=== PATIENT | male | born 1985 | race African-American/Black ===

== ENCOUNTER 2017-04-20 17:10 | Emergency (ER) | payer SELFPAY ==
[2017-04-20] MEDS ORDERED: ASPIRIN 81 MG TABLET, CHEWABLE PO ONE (17:25)
[2017-04-20 17:44] LABS: ABSOLUTE EOSINOPHILS # (AUTO) 0.1 10^3/uL (0.0-0.6); ABSOLUTE LYMPHOCYTES (AUTO) 2.7 10^3/uL (0.5-4.7); ABSOLUTE MONOCYTES (AUTO) 0.7 10^3/uL (0.1-1.4); ABSOLUTE NEUT (AUTO) 2.9 10^3/uL (1.7-8.2); BASOPHILS % (AUTO) 0.7 % (0-2); EOSINOPHILS % (AUTO) 1.5 % (0-6); HEMOGLOBIN 14.7 g/dL (13.5-17.0); HGB HCT DIFFERENCE -0.9; LYMPHOCYTES % (AUTO) 42.2 % (13-45); MEAN CORPUSCULAR HEMOGLOBIN 29.9 pg (27.0-33.4); MEAN CORPUSCULAR HGB CONC 32.8 g/dL (32.0-36.0); MEAN CORPUSCULAR VOLUME 91 fl (80-97); MONOCYTES % (AUTO) 10.7 % (3-13); RED BLOOD COUNT 4.93 10^6/uL (4.35-5.55); RED CELL DISTRIBUTION WIDTH 13.6 % (11.5-14.0); SEGMENTED NEUTROPHILS % (AUTO) 44.9 % (42-78); WHITE BLOOD COUNT 6.4 10^3/uL (4.0-10.5)
[2017-04-20 18:09] LABS: ALANINE AMINOTRANSFERASE 75 U/L (21-72); ALBUMIN 4.6 g/dL (3.5-5.0); ALKALINE PHOSPHATASE 86 U/L (38-126); ANION GAP 13 (5-19); ASPARTATE AMINO TRANSFERASE 46 U/L (17-59); BILIRUBIN,DIRECT 0.3 mg/dL (0.0-0.4); BILIRUBIN,TOTAL 0.5 mg/dL (0.2-1.3); BLOOD UREA NITROGEN 12 mg/dL (7-20); CALCIUM 9.7 mg/dL (8.4-10.2); CARBON DIOXIDE 25 mmol/L (22-30); CHLORIDE 105 mmol/L (98-107); CREATINE KINASE 337 U/L (55-170); CREATININE RESULT 1.05 mg/dL (0.52-1.25); GLUCOSE 112 mg/dL (75-110); SODIUM 143.2 mmol/L (137-145)
--- NOTE | 2017-04-20 18:10 | ER Document Report ---
ED General - General Mode of Arrival: Ambulatory Information source: Patient TRAVEL OUTSIDE OF THE [place] IN LAST 30 DAYS: No - HPI Onset: Other - Refer to HPI notes Similar symptoms previously: No Recently seen / treated by doctor: No <HIPOLITO CUEVAS - Last Filed: 04/20/17 18:46> <LATRICEMAGUI VICENTE - Last Filed: 04/20/17 20:52> - General Chief Complaint: Chest Pain Stated Complaint: CHEST PAIN Time Seen by Provider: 04/20/17 17:25 Notes: Patient is a 32 year old male presenting to the emergency department for chest pain in his sternum. Patient states his pain has been waxing and waning since Saturday. Patient states his pain is exacerbated with with deep breathing and when he takes a gulp of fluid. Patient states he feels like his lungs are burning. Patient states he had an herbal tea energy drink earlier this morning. Patient has a history of hypertension and spouse states that he not take his medications for such. Patient was given medications for hypertension at the ED from a prior visit and states that they make him dizzy so he does not take them. Patient was given 325 mg of Aspirin in triage. Patient has no known drug allergies. (HIPOLITO CUEVAS) - Related Data Allergies/Adverse Reactions: No Known Allergies Allergy (Verified 12/22/14 12:16) Past Medical History - General Information source: Patient, Relative - Social History Smoking Status: Current Every Day Smoker Chew tobacco use (# tins/day): No Frequency of alcohol use: None Drug Abuse: None Family History: None Patient has suicidal ideation: No Patient has homicidal ideation: No - Past Medical History Cardiac Medical History: Reports: Hx Hypertension Surgical Hx: Negative - Immunizations Immunizations up to date: Yes Hx Diphtheria, Pertussis, Tetanus Vaccination: Yes <HIPOLITO CUEVAS - Last Filed: 04/20/17 18:46> Review of Systems - Review of Systems Constitutional: No symptoms reported EENT: No symptoms reported Cardiovascular: See HPI, Chest pain Respiratory: No symptoms reported Gastrointestinal: No symptoms reported Genitourinary: No symptoms reported Male Genitourinary: No symptoms reported Musculoskeletal: No symptoms reported Skin: No symptoms reported Hematologic/Lymphatic: No symptoms reported Neurological/Psychological: No symptoms reported -: Yes All other systems reviewed and negative <HIPOLITO CUEVAS - Last Filed: 04/20/17 18:46> Physical Exam - Vital signs Interpretation: Hypertensive - General General appearance: Appears well, Alert - HEENT Head: Normocephalic, Atraumatic Eyes: Normal Pupils: PERRL - Respiratory Respiratory status: No respiratory distress Chest status: Nontender Breath sounds: Normal Chest palpation: Tender - Reproducible chest wall tenderness to palpation at the costosternal angle. - Cardiovascular Rhythm: Regular Heart sounds: Normal auscultation Murmur: No - Abdominal Inspection: Normal Distension: No distension Bowel sounds: Normal Tenderness: Nontender Organomegaly: No organomegaly - Back Back: Normal, Nontender - Extremities General upper extremity: Normal inspection, Nontender, Normal color, Normal ROM , Normal temperature General lower extremity: Normal inspection, Nontender, Normal color, Normal ROM , Normal temperature, Normal weight bearing. No: Ash's sign - Neurological Neuro grossly intact: Yes Cognition: Normal Orientation: AAOx4 Leo Coma Scale Eye Opening: Spontaneous Varney Coma Scale Verbal: Oriented Leo Coma Scale Motor: Obeys Commands Varney Coma Scale Total: 15 Speech: Normal Motor strength normal: LUE, RUE, LLE, RLE Sensory: Normal - Psychological Associated symptoms: Normal affect, Normal mood - Skin Skin Temperature: Warm Skin Moisture: Dry Skin Color: Normal <MAGUI POLLARD - Last Filed: 04/20/17 20:52> Course - Laboratory Result Diagrams: 04/20/17 17:35 04/20/17 17:35 <HIPOLITO CUEVAS - Last Filed: 04/20/17 18:46> - Laboratory Result Diagrams: 04/20/17 17:35 04/20/17 17:35 - Diagnostic Test Radiology reviewed: Reports reviewed - EKG Interpretation by Ri EKG shows normal: Sinus rhythm Rate: Normal Rhythm: NSR <MAGUI POLLARD - Last Filed: 04/20/17 20:52> - Re-evaluation Re-evalutation: 04/20/17 19:51 Patient is a 32-year-old male who comes in with anterior chest wall pain. It is reproducible to palpation. Patient has a history of hypertension but states that it makes him dizzy when he takes blood pressure medication. His blood pressure has come down to 130s over 90s here without any intervention. No acute findings on blood work. Troponin is negative. D-dimer is negative. Chest x-ray with no acute findings. Patient does appear To have hyperthyroidism. 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 Understands and agrees with plan. Stable for discharge home. (MAGUI POLLARD) - Laboratory Laboratory results interpreted by me: 04/20/17 04/20/17 17:35 17:35 Glucose 112 H ALT 75 H Creatine Kinase 337 H TSH 0.22 L Discharge <HIPOLITO CUEVAS - Last Filed: 04/20/17 18:46> <MAGUI POLLARD - Last Filed: 04/20/17 20:52> - Discharge Clinical Impression: Chest wall pain, Hyperthyroidism Condition: Stable Disposition: HOME, SELF-CARE Instructions: Chest Wall Pain ([facility]), Hyperthyroidism ([facility]), Family Physicians / Practices Additional Instructions: Please follow-up with your doctor this week. Please make sure you are drinking plenty of non-caffeinated beverages. Prescriptions: Cyclobenzaprine HCl [Flexeril 10 Mg Tablet] 10 mg PO BIDP PRN #20 tablet PRN Reason: Forms: Return to Work Scribe Attestation: 04/20/17 20:20 I personally performed the services described in the documentation, reviewed and edited the documentation which was dictated to the scribe in my presence, and it accurately records my words and actions. (MAGUI POLLARD) Scribe Documentation - Scribe Written by Scrk[place]:: Miguel Saldana, 04/20/2017 18:40 acting as scribe for :: Latrice <HIPOLITO CUEVAS - Last Filed: 04/20/17 18:46>
[2017-04-20 18:19] LABS: CREATINE KINASE MB 1.29 ng/mL (<4.55)
--- NOTE | 2017-04-20 18:19 | RADIOLOGY REPORT (SQ) ---
EXAM DESCRIPTION: CHEST SINGLE VIEW COMPLETED DATE/TIME: 04/20/2017 6:03 pm REASON FOR STUDY: cp COMPARISON: None. EXAM PARAMETERS: NUMBER OF VIEWS: One view. TECHNIQUE: Single frontal radiographic view of the chest acquired. RADIATION DOSE: NA LIMITATIONS: None. FINDINGS: LUNGS AND PLEURA: No opacities, masses or pneumothorax. No pleural effusion. MEDIASTINUM AND HILAR STRUCTURES: No masses. Contour normal. HEART AND VASCULAR STRUCTURES: Heart normal in size. Normal vasculature. BONES: No acute findings. HARDWARE: None in the chest. OTHER: No other significant finding. IMPRESSION: NO ACUTE RADIOGRAPHIC FINDING IN THE CHEST. TECHNICAL DOCUMENTATION: JOB ID: [id number]
[2017-04-20 18:24] LABS: TROPONIN I < 0.012 ng/mL
[2017-04-20] MEDS ORDERED: SUCRALFATE 1 GM TABLET PO ONE (18:30)
[2017-04-20] MEDS ORDERED: NORMAL SALINE 1000 ML 1,000 ML IV ONE (18:30)
[2017-04-20] MEDS ORDERED: FAMOTIDINE 20 MG TABLET PO ONE (18:30)
[2017-04-20] MEDS ORDERED: ONDANSETRON 4 MG TAB.RAPDIS PO ONE (18:30)
[2017-04-20] MEDS ORDERED: KETOROLAC TROMETHAMINE INJ/PF 30 MG/1 ML SDV IV ONE (19:14)
[2017-04-20 21:09] VITALS: BP 147/92
--- NOTE | 2017-04-21 13:02 | EKG REPORT ---
SEVERITY:- ABNORMAL ECG - SINUS RHYTHM PROBABLE LEFT ATRIAL ABNORMALITY BORDERLINE T WAVE ABNORMALITIES BORDERLINE ST ELEVATION, ANTERIOR LEADS : Confirmed by: Daisha Darnell MD 21-Apr-2017 13:02:01
== END 2017-04-20 21:09 | disposition home or self-care (01) ==
LOC: ER 17:10
DX: R07.89 Other chest pain (principal); E05.90 Thyrotoxicosis, unspecified without thyrotoxic crisis or storm; R06.02 Shortness of breath; F17.200 Nicotine dependence, unspecified, uncomplicated
CPT/HCPCS: 93005; 99285; 96374; 36415; 82553; 82550; 84443; 85025; 80053; 84484; 85379; 71010; 93010; S0119; J1885; J7030

== ENCOUNTER 2017-05-06 11:59 | Emergency (ER) | payer SELFPAY ==
[2017-05-06 12:06] VITALS: BP 166/111
[2017-05-06] MEDS ORDERED: ACETAMINOPHEN WITH CODEINE #3 TABLET PO ONE (12:57)
[2017-05-06] MEDS ORDERED: PENICILLIN V POTASSIUM 500 MG TABLET PO ONE (12:57)
--- NOTE | 2017-05-06 13:00 | ER Document Report ---
HPI - HPI Patient complains to provider of: toothache Onset: Other - past two days Onset/Duration: Gradual Quality of pain: Achy, Throbbing Pain Level: 3 Associated Symptoms: None Exacerbated by: Food Relieved by: Denies Similar symptoms previously: No Recently seen / treated by doctor: No - ROS ROS below otherwise negative: Yes - DERM Skin Color: Normal Past Medical History - Social History Smoking Status: Current Every Day Smoker Family History: None Patient has suicidal ideation: No Patient has homicidal ideation: No - Past Medical History Cardiac Medical History: Reports: Hx Hypertension Renal/ Medical History: Denies: Hx Peritoneal Dialysis - Immunizations Immunizations up to date: Yes Hx Diphtheria, Pertussis, Tetanus Vaccination: Yes Vertical Provider Document - CONSTITUTIONAL Agree With Documented VS: Yes Exam Limitations: No Limitations General Appearance: WD/WN, No Apparent Distress - INFECTION CONTROL TRAVEL OUTSIDE OF THE [place] IN LAST 30 DAYS: No - HEENT Mouth Diagram: 1 - tenderness without evidence of gingival inflammation or abscess Notes: Uvula midline. Airway patent. No evidence of tonsillar enlargement, peritonsillar abscess, retropharyngeal abscess. - NECK Neck: Normal Inspection. negative: Lymphadenopathy-Left, Lymphadenopathy-Right - RESPIRATORY Respiratory: Breath Sounds Normal, No Respiratory Distress, Chest Non-Tender O2 Sat by Pulse Oximetry: 98 - CARDIOVASCULAR Cardiovascular: Regular Rate, Regular Rhythm, No Murmur - NEURO Level of Consciousness: Awake, Alert, Appropriate Motor/Sensory: No Motor Deficit, No Sensory Deficit Course - Re-evaluation Re-evalutation: 05/06/17 12:59 Patient is a 32-year-old male presents emergency department complaining of toothache for the past 2 days. No evidence of abscess or gingival inflammation. Will initiate on penicillin and discharge home with Tylenol 3. Patient to call and schedule an appointment with his dentist upon discharge. - Vital Signs Vital signs: Temp Pulse Resp BP Pulse Ox 98.3 F 65 20 166/111 H 98 05/06/17 12:05 05/06/17 12:05 05/06/17 12:05 05/06/17 12:05 05/06/17 12:05 Discharge - Discharge Clinical Impression: Toothache Condition: Good Disposition: HOME, SELF-CARE Instructions: [facility], Penicillin V K ([facility]), Toothache ([facility]) Prescriptions: Acetaminophen with Codeine [Acetaminophen-Cod #3 Tablet] 1 each PO Q8HP PRN #10 tablet PRN Reason: Penicillin V Potassium [Penicillin Vk 500 mg Tablet] 500 mg PO QID 7 Days Referrals: INGRID RICHARDS MD [Primary Care Provider] - Follow up as needed
== END 2017-05-06 13:20 | disposition home or self-care (01) ==
LOC: ER 11:59
DX: K08.9 Disorder of teeth and supporting structures, unspecified (principal); F17.200 Nicotine dependence, unspecified, uncomplicated; I10 Essential (primary) hypertension
CPT/HCPCS: 99282

== ENCOUNTER → 2017-06-20 | Outpatient (CLI) | payer OTHER ==
--- NOTE | 2017-06-21 12:50 | RADIOLOGY REPORT (SQ) ---
EXAM DESCRIPTION: NM THYROID SCAN AND UPTAKE COMPLETED DATE/TIME: 06/21/2017 10:28 am REASON FOR STUDY: HYPERTHYROIDISM E05.90 THYROTOXICOSIS, UNSP WITHOUT THYROTOXIC CRISIS OR STO COMPARISON: CT facial bones 12/23/2014 RADIONUCLIDE AND DOSE: 293 microcuries I-123. The route of agent administration: Oral ADDITIONAL DRUGS AND DOSES: None. TECHNIQUE: Iodine uptake was measured at 4 and 24 hours. Images of the neck were acquired. LIMITATIONS: None. FINDINGS: 4 HOUR UPTAKE RADIO-IODINE: 6.5%. Normal Range of 5-15% [facility] 24 HOUR UPTAKE RADIO-IODINE: 16.5%. Normal Range of 15-30% [facility] SCAN: Homogeneous uptake of the radionuclide throughout both lobes of the gland and isthmus without a reas of increased or decreased activity. Normal size. The OTHER: No other significant finding. IMPRESSION: NORMAL RADIONUCLIDE SCAN OF THYROID GLAND. NORMAL UPTAKE OF IODINE. TECHNICAL DOCUMENTATION: JOB ID: [id number] [employer]- All Rights Reserved
== END ==
LOC: RAD 08:10
PROVIDERS: ATTEND Physician Assistant
DX: E05.90 Thyrotoxicosis, unspecified without thyrotoxic crisis or storm (principal)
CPT/HCPCS: 78014; A9516

== ENCOUNTER 2017-08-22 18:30 | Emergency (ER) | payer OTHER ==
--- NOTE | 2017-08-22 19:16 | ER Document Report ---
ED Medical Screen (RME) - General Chief Complaint: Abdominal Pain Stated Complaint: STOMACH PAIN Time Seen by Provider: 08/22/17 18:57 TRAVEL OUTSIDE OF THE [place] IN LAST 30 DAYS: No - HPI Notes: 08/22/17 19:15 Patient states upper abdominal pain 1 hour prior to arrival. He states was driving with abdominal pain started. Patient is standing up unable to examine abdomen - Related Data Allergies/Adverse Reactions: No Known Allergies Allergy (Verified 08/22/17 18:49) Past Medical History - Social History Chew tobacco use (# tins/day): No Frequency of alcohol use: None Drug Abuse: None Family history: Reviewed & Not Pertinent - Past Medical History Cardiac Medical History: Reports: Hx Hypertension Renal/ Medical History: Denies: Hx Peritoneal Dialysis - Immunizations Immunizations up to date: Yes Hx Diphtheria, Pertussis, Tetanus Vaccination: Yes Review of Systems - Review of Systems Gastrointestinal: Abdominal pain Physical Exam - Vital signs Vitals: Temp Pulse Resp BP Pulse Ox 98.0 F 63 16 164/118 H 98 08/22/17 18:49 08/22/17 18:49 08/22/17 18:49 08/22/17 18:49 08/22/17 18:49 - Cardiovascular Rhythm: Regular Heart sounds: Normal auscultation Course - Vital Signs Vital signs: Temp Pulse Resp BP Pulse Ox 98.0 F 63 16 164/118 H 98 08/22/17 18:49 08/22/17 18:49 08/22/17 18:49 08/22/17 18:49 08/22/17 18:49
[2017-08-22] MEDS ORDERED: ONDANSETRON HCL INJ/PF 4 MG/2 ML SDV IV ONE (19:36)
[2017-08-22] MEDS ORDERED: MORPHINE SULFATE 10 MG/ML INJ IV ONE (19:36)
[2017-08-22] MEDS ORDERED: KETOROLAC TROMETHAMINE INJ/PF 30 MG/1 ML SDV IV ONE (19:36)
--- NOTE | 2017-08-22 19:37 | ER Document Report ---
ED GI/ - General Chief Complaint: Abdominal Pain Stated Complaint: STOMACH PAIN Time Seen by Provider: 08/22/17 18:57 Notes: Patient is a 32-year-old male who comes emergency department for chief complaint of sharp pain in his upper abdomen, pain started about 1 hour prior to arrival, he states he feels like he is being stabbed and twisted in his upper belly. He states he has not vomited, he states he did vomit yesterday after he took medicine on an empty stomach but otherwise has not had any difficulty with the eating, denies difficulty with bowel movements, denies fever. He denies any surgeries. He smokes, he denies any alcohol. He denies history of the same. TRAVEL OUTSIDE OF THE [place] IN LAST 30 DAYS: No - Related Data Allergies/Adverse Reactions: No Known Allergies Allergy (Verified 08/22/17 18:49) Past Medical History - General Information source: Patient - Social History Smoking Status: Current Every Day Smoker Chew tobacco use (# tins/day): No Frequency of alcohol use: None Drug Abuse: None Family History: None - Past Medical History Cardiac Medical History: Reports: Hx Hypertension Renal/ Medical History: Denies: Hx Peritoneal Dialysis Surgical Hx: Negative - Immunizations Immunizations up to date: Yes Hx Diphtheria, Pertussis, Tetanus Vaccination: Yes Review of Systems - Review of Systems Constitutional: No symptoms reported EENT: No symptoms reported Cardiovascular: No symptoms reported Respiratory: No symptoms reported Gastrointestinal: See HPI Genitourinary: No symptoms reported Male Genitourinary: No symptoms reported Musculoskeletal: No symptoms reported Skin: No symptoms reported Hematologic/Lymphatic: No symptoms reported Neurological/Psychological: No symptoms reported Physical Exam - Vital signs Vitals: Temp Pulse Resp BP Pulse Ox 98.0 F 63 16 164/118 H 98 08/22/17 18:49 08/22/17 18:49 08/22/17 18:49 08/22/17 18:49 08/22/17 18:49 Interpretation: Normal - General General appearance: Alert, Anxious In distress: Moderate - Patient standing, holding his abdomen, he actually does appear to be in some pain but does not appear to be in severe distress - HEENT Head: Normocephalic, Atraumatic Eyes: Normal Pupils: PERRL - Respiratory Respiratory status: No respiratory distress Chest status: Nontender Breath sounds: Normal Chest palpation: Normal - Cardiovascular Rhythm: Regular Heart sounds: Normal auscultation Murmur: No - Abdominal Inspection: Normal Distension: No distension Bowel sounds: Normal Tenderness: Tender - Tenderness over the upper abdomen generally, pain is worst in the epigastric area, lower abdomen is soft and benign, no obvious abnormalities over superficial inspection, no rigidity, no rebound tenderness, no guarding Organomegaly: No organomegaly - Back Back: Normal, Nontender. No: Tender, CVA tenderness - Extremities General upper extremity: Normal inspection, Nontender, Normal color, Normal ROM , Normal temperature General lower extremity: Normal inspection, Nontender, Normal color, Normal ROM , Normal temperature, Normal weight bearing. No: Ash's sign - Neurological Neuro grossly intact: Yes Cognition: Normal Orientation: AAOx4 Leo Coma Scale Eye Opening: Spontaneous Leo Coma Scale Verbal: Oriented Leo Coma Scale Motor: Obeys Commands [place] Coma Scale Total: 15 Speech: Normal Motor strength normal: LUE, RUE, LLE, RLE Sensory: Normal - Skin Skin Temperature: Warm Skin Moisture: Dry Skin Color: Normal Course - Re-evaluation Re-evalutation: Patient patient's abdominal exam and it almost seems as if he is having a muscle spasm of the abdominal muscles, generalized upper abdominal tenderness, he does appear to be uncomfortable. After medication symptoms completely resolved and did not return. Patient also given IV fluids. CBC, chemistry unremarkable, urinalysis shows some dehydration with elevated specific gravity and ketones but is otherwise unremarkable. Ultrasound shows small amount of gallbladder sludge with no pericholecystic fluid, no obstructive pathology or evidence for cholecystitis. Discussed results with patient in detail, patient acknowledges, states that he is ready to leave, discussed potential follow-up with surgical clinic, discussed return precautions, patient states understanding and agreement. He will be treated with Pepcid and muscle relaxer because of difficulty to establish exactly because of his symptoms today. - Vital Signs Vital signs: Temp Pulse Resp BP Pulse Ox 97.8 F 78 16 153/86 H 100 08/22/17 21:52 08/22/17 21:52 08/22/17 21:52 08/22/17 21:52 08/22/17 21:52 - Laboratory Result Diagrams: 08/22/17 19:51 08/22/17 19:24 Laboratory results interpreted by me: 08/22/17 08/22/17 19:24 20:44 Sodium 146.7 H Urine Ketones 20 H Urine Ascorbic Acid 40 H Discharge - Discharge Clinical Impression: Abdominal pain Qualifiers: Abdominal location: upper abdomen, unspecified Qualified Code(s): R10.10 - Upper abdominal pain, unspecified Condition: Stable Disposition: HOME, SELF-CARE Additional Instructions: Your workup shows dehydration and a small amount of sludge in your gallbladder but no specific cause of your symptoms was found. Impression on exam was a spasm of your abdominal muscle, this could also be stomach/small bowel. Take the Pepcid as prescribed, take the muscle relaxer if needed, apply heat to your abdomen, rest your abdomen. In general avoid fatty foods and follow-up with primary care for additional evaluation. Return to the emergency department for any concerning or worsening symptoms including vomiting, fever, severe pain, or any other concerning symptoms. Prescriptions: Famotidine [Pepcid 20 mg Tablet] 20 mg PO BID #20 tablet Methocarbamol [Robaxin 500 mg Tablet] 500 mg PO QID PRN #20 tablet PRN Reason: Forms: Return to Work Referrals: SUZETTE COLLINS MD [Primary Care Provider] - Follow up as needed
[2017-08-22] MEDS: NORMAL SALINE 1000 ML 1,000 ML IV PRN ×2 (19:57→21:00)
[2017-08-22 20:15] LABS: ABSOLUTE BASOPHILS # (AUTO) 0.1 10^3/uL (0.0-0.2); ABSOLUTE LYMPHOCYTES (AUTO) 1.6 10^3/uL (0.5-4.7); ABSOLUTE MONOCYTES (AUTO) 0.7 10^3/uL (0.1-1.4); ABSOLUTE NEUT (AUTO) 6.6 10^3/uL (1.7-8.2); BASOPHILS % (AUTO) 0.6 % (0-2); EOSINOPHILS % (AUTO) 0.2 % (0-6); HEMATOCRIT 44.9 % (37.9-51.0); HEMOGLOBIN 15.3 g/dL (13.5-17.0); LYMPHOCYTES % (AUTO) 17.7 % (13-45); MEAN CORPUSCULAR HEMOGLOBIN 30.8 pg (27.0-33.4); MEAN CORPUSCULAR VOLUME 90 fl (80-97); MONOCYTES % (AUTO) 7.9 % (3-13); RED BLOOD COUNT 4.97 10^6/uL (4.35-5.55); RED CELL DISTRIBUTION WIDTH 13.5 % (11.5-14.0); SEGMENTED NEUTROPHILS % (AUTO) 73.6 % (42-78)
[2017-08-22 20:18] LABS: ALANINE AMINOTRANSFERASE 41 U/L (21-72); ALBUMIN 4.8 g/dL (3.5-5.0); ALKALINE PHOSPHATASE 94 U/L (38-126); ANION GAP 16 (5-19); ASPARTATE AMINO TRANSFERASE 21 U/L (17-59); BILIRUBIN,DIRECT 0.3 mg/dL (0.0-0.4); BILIRUBIN,TOTAL 0.5 mg/dL (0.2-1.3); BLOOD UREA NITROGEN 12 mg/dL (7-20); CALCIUM 10.1 mg/dL (8.4-10.2); CARBON DIOXIDE 25 mmol/L (22-30); CHLORIDE 106 mmol/L (98-107); CREATININE RESULT 0.99 mg/dL (0.52-1.25); GLUCOSE 110 mg/dL (75-110); LIPASE 51.7 U/L (23-300); POTASSIUM 3.7 mmol/L (3.6-5.0); SODIUM 146.7 mmol/L (137-145); TOTAL PROTEIN 8.1 g/dL (6.3-8.2)
[2017-08-22 20:56] LABS: APPEARANCE,URINE CLEAR; BILIRUBIN,URINE NEGATIVE (NEGATIVE); GLUCOSE, URINE NEGATIVE (NEGATIVE); KETONES,URINE 20 mg/dL (NEGATIVE); LEUKOCYTE ESTERASE,URINE NEGATIVE (NEGATIVE); NITRITE,URINE NEGATIVE (NEGATIVE); PROTEIN,URINE NEGATIVE (NEGATIVE); URINE SPECIFIC GRAVITY 1.027; UROBILINOGEN,URINE NEGATIVE mg/dL (<2.0)
--- NOTE | 2017-08-22 20:57 | RADIOLOGY REPORT (SQ) ---
EXAM DESCRIPTION: U/S ABDOMEN LIMITED W/O DOP COMPLETED DATE/TIME: 08/22/2017 8:49 pm REASON FOR STUDY: sharp epigastric pain COMPARISON: None. TECHNIQUE: Dynamic and static grayscale images acquired of the right upper quadrant and recorded on PACS. Additional selected color Doppler and spectral images recorded. LIMITATIONS: Study limited due to acoustical interference from fat or from air in the bowel. FINDINGS: PANCREAS: Visualized pancreas and duct normal. Parts of pancreas poorly seen secondary to acoustical interference from fat or from air in the bowel. LIVER: No masses. Echotexture normal. LIVER VASCULATURE: Normal directional flow of the main portal vein and hepatic veins. GALLBLADDER: No stones. Small amount of sludge. Normal wall thickness. No pericholecystic fluid. ULTRASOUND-DETECTED WEBB'S SIGN: Positive. INTRAHEPATIC DUCTS AND COMMON DUCT: CBD and intrahepatic ducts normal caliber. No filling defects. INFERIOR VENA CAVA: Normal flow. AORTA: No aneurysm. RIGHT KIDNEY: Normal size. Normal echogenicity. No solid or suspicious masses. No hydronephrosis. No calcifications. PERITONEAL CAVITY AND RIGHT PLEURAL SPACE: No ascites or effusions. OTHER: No other significant finding. IMPRESSION: SMALL AMOUNT OF SLUDGE IN THE GALLBLADDER. REPORTED POSITIVE SONOGRAPHIC WEBB SIGN. TECHNICAL DOCUMENTATION: JOB ID: [id number] [employer]- All Rights Reserved
[2017-08-22] MEDS ORDERED: NORMAL SALINE 1000 ML 1,000 ML IV ONE (21:30)
[2017-08-22] MEDS ORDERED: HYDROCODONE/ACETAMINOPHEN 5-325 MG 6 TAB/DSPK PO PRN (21:46)
[2017-08-22 21:52] VITALS: BP 153/86
== END 2017-08-22 22:02 | disposition home or self-care (01) ==
LOC: ER 18:30
DX: R10.10 Upper abdominal pain, unspecified (principal); R11.10 Vomiting, unspecified; F17.200 Nicotine dependence, unspecified, uncomplicated; I10 Essential (primary) hypertension
CPT/HCPCS: 99284; 36415; 83690; 85025; 80053; 81001; 76705; J1885; J2270; J2405; J7030

== ENCOUNTER 2017-10-20 14:58 | Emergency (ER) | payer OTHER ==
[2017-10-20] MEDS ORDERED: OXYCODONE-ACETAMINOPHEN 5-325 MG TABLET PO ONE (15:16)
[2017-10-20] MEDS ORDERED: ONDANSETRON 4 MG TAB.RAPDIS PO ONE (15:16)
--- NOTE | 2017-10-20 15:19 | ER Document Report ---
ED Medical Screen (RME) - General Chief Complaint: Pain All Over Stated Complaint: BODY ACHES Time Seen by Provider: 10/20/17 15:10 Notes: This 32-year-old male patient comes emergency room complaining of onset yesterday of whole body hurting and aching. He reports chills feeling hot and cold. There is a little bit of cough, some nausea and vomiting, no diarrhea. There is a little nasal congestion. He did not get a flu shot. The primary area of pain is his right lower jaw which she feels is coming from his teeth. Brief exam shows his right lower second molar is quite tender to percuss, there is gum swelling on the lateral aspect. I have greeted and performed a rapid initial assessment of this patient. A comprehensive ED assessment and evaluation of the patient, analysis of test results and completion of the medical decision making process will be conducted by additional ED providers. TRAVEL OUTSIDE OF THE [place] IN LAST 30 DAYS: No - Related Data Allergies/Adverse Reactions: No Known Allergies Allergy (Verified 10/20/17 14:59) Past Medical History - Social History Chew tobacco use (# tins/day): No Frequency of alcohol use: None Drug Abuse: None Family history: Reviewed & Not Pertinent - Past Medical History Cardiac Medical History: Reports: Hx Hypertension Renal/ Medical History: Denies: Hx Peritoneal Dialysis - Immunizations Immunizations up to date: Yes Hx Diphtheria, Pertussis, Tetanus Vaccination: Yes Physical Exam - Vital signs Vitals: Temp Pulse Resp BP Pulse Ox 99.2 F 65 20 178/113 H 98 10/20/17 15:05 10/20/17 15:05 10/20/17 15:05 10/20/17 15:05 10/20/17 15:05 Course - Vital Signs Vital signs: Temp Pulse Resp BP Pulse Ox 99.2 F 65 20 178/113 H 98 10/20/17 15:05 10/20/17 15:05 10/20/17 15:05 10/20/17 15:05 10/20/17 15:05
--- NOTE | 2017-10-20 15:37 | ER Document Report ---
ED General - General Chief Complaint: Pain All Over Stated Complaint: BODY ACHES Time Seen by Provider: 10/20/17 15:10 Notes: Patient is a 32-year-old male presents emergency department complaining of right ear pain, toothache as well as flu like symptoms for the past 24 hours. Patient admits to call his symptoms starting within the past 24 hours. Patient states that he is right ear pain with associated right toothache. Denies any foul odor or drainage from his tooth. Admits to associated body aches with hot flashes and chills, nausea with vomiting. Denies any sick contacts Did not receive a flu vaccine this year. Does have a history of high blood pressure and hypothyroidism TRAVEL OUTSIDE OF THE [place] IN LAST 30 DAYS: No - Related Data Allergies/Adverse Reactions: No Known Allergies Allergy (Verified 10/20/17 14:59) Past Medical History - Social History Smoking Status: Current Every Day Smoker Chew tobacco use (# tins/day): No Frequency of alcohol use: None Drug Abuse: None Family History: None Patient has suicidal ideation: No Patient has homicidal ideation: No - Past Medical History Cardiac Medical History: Reports: Hx Hypertension Renal/ Medical History: Denies: Hx Peritoneal Dialysis - Immunizations Immunizations up to date: Yes Hx Diphtheria, Pertussis, Tetanus Vaccination: Yes Review of Systems - Review of Systems Constitutional: See HPI Cardiovascular: No symptoms reported Respiratory: No symptoms reported Gastrointestinal: See HPI Musculoskeletal: See HPI -: Yes All other systems reviewed and negative Physical Exam - Vital signs Vitals: Temp Pulse Resp BP Pulse Ox 99.2 F 65 20 178/113 H 98 10/20/17 15:05 10/20/17 15:05 10/20/17 15:05 10/20/17 15:05 10/20/17 15:05 - Notes Notes: PHYSICAL EXAM GENERAL: Alert, interacts well. HEAD: Normocephalic, atraumatic. EYES: Pupils equal, round, and reactive to light. Extraocular movements intact. ENT: Oral mucosa moist, tongue midline. Pain over tooth 32 without evidence of gingival inflammation, abscess. NECK: Full range of motion. Supple. Trachea midline. LUNGS: Clear to auscultation bilaterally, no wheezes, rales, or rhonchi. No respiratory distress. HEART: Regular rate and rhythm. No murmurs, gallops, or rubs. ABDOMEN: Soft, nondistended, nontender. No guarding, rebound, or rigidity.. Bowel sounds present in all 4 quadrants. EXTREMITIES: Moves all 4 extremities spontaneously. No edema, radial and dorsalis pedis pulses 2/4 bilaterally. No cyanosis. NEUROLOGICAL: Alert and oriented x4. Normal speech. PSYCH: Normal affect, normal mood. SKIN: Warm, dry, normal turgor. No rashes or lesions noted. Course - Re-evaluation Re-evalutation: 10/20/17 17:34 Patient is a 32-year-old male who is hemodynamically stable, no acute distress and afebrile. Patient's presentation is consistent with a viral syndrome. Patient did test negative for influenza. CBC stable without any evidence of leukocytosis or anemia. No evidence of electrolyte abnormalities, acute renal failure. Urinalysis without evidence of dehydration or urinary tract infection. Patient is tolerating p.o. without any difficulty. Feels better after hydration and pain medications received in triage. Discussed with patient that we will discharge him home with antibiotics to cover for his toothache as well as nausea medications. Patient to continue clear liquid hydration and to follow-up with primary care. Patient agrees with plan and is stable for discharge home. - Vital Signs Vital signs: Temp Pulse Resp BP Pulse Ox 99.0 F 68 16 169/109 H 98 10/20/17 16:18 10/20/17 16:18 10/20/17 16:18 10/20/17 16:18 10/20/17 16:18 - Laboratory Result Diagrams: 10/20/17 15:20 10/20/17 15:20 Laboratory results interpreted by me: 10/20/17 15:20 Glucose 115 H Discharge - Discharge Clinical Impression: Viral syndrome, Toothache Condition: Good Disposition: HOME, SELF-CARE Additional Instructions: Viral Syndrome The physician has diagnosed a viral infection. Viruses not only cause "colds," but can cause many different symptoms including generalized aching, fever, headache, cough, diarrhea, nausea, vomiting, and fatigue. The treatment, for the most part, is simply relief of symptoms. This means that antibiotics are usually not given. Rest, fluids, pain medications and, occasionally, medication for the specific symptoms that are most bothersome will be prescribed. Use good handwashing to avoid passing the virus to others. Shared toys should be cleaned with disinfectant. Clean the toilets, sinks, and counter surfaces in bathrooms. Launder clothing in hot water. Contact the physician if you develop any new or unusual symptoms such as severe headache, stiff neck, high fever, chest pain, productive cough, or shortness of breath. You should be rechecked if you don't see marked improvement within seven to 10 days. You have been seen for dental pain. It is very important that you follow-up with a dentist for definitive care. Please return if you develop fever greater than 101, swelling in your face, vomiting, difficulty breathing or swallowing, or any other symptoms that are concerning to you. For pain you should take ibuprofen 600 mg every 6 hours as needed. Prescriptions: Ondansetron [Zofran Odt 4 mg Tablet] 1 - 2 tab PO Q4H PRN #30 tab.rapdis PRN Reason: For Nausea/Vomiting Penicillin V Potassium [Penicillin Vk 500 mg Tablet] 500 mg PO TID 7 Days #21 tablet Referrals: [facility] [Provider Group] - Follow up in 3-5 days
[2017-10-20 15:52] LABS: ABSOLUTE LYMPHOCYTES (AUTO) 1.7 10^3/uL (0.5-4.7); ABSOLUTE MONOCYTES (AUTO) 0.5 10^3/uL (0.1-1.4); ABSOLUTE NEUT (AUTO) 5.6 10^3/uL (1.7-8.2); BASOPHILS % (AUTO) 0.3 % (0-2); EOSINOPHILS % (AUTO) 0.3 % (0-6); HEMATOCRIT 45.7 % (37.9-51.0); HEMOGLOBIN 15.5 g/dL (13.5-17.0); HGB HCT DIFFERENCE 0.8; LYMPHOCYTES % (AUTO) 21.4 % (13-45); MEAN CORPUSCULAR HEMOGLOBIN 30.3 pg (27.0-33.4); MEAN CORPUSCULAR HGB CONC 33.9 g/dL (32.0-36.0); MEAN CORPUSCULAR VOLUME 89 fl (80-97); MONOCYTES % (AUTO) 6.3 % (3-13); RED BLOOD COUNT 5.11 10^6/uL (4.35-5.55); RED CELL DISTRIBUTION WIDTH 13.6 % (11.5-14.0); SEGMENTED NEUTROPHILS % (AUTO) 71.7 % (42-78); WHITE BLOOD COUNT 7.9 10^3/uL (4.0-10.5)
[2017-10-20 16:12] LABS: ALANINE AMINOTRANSFERASE 36 U/L (21-72); ALBUMIN 4.4 g/dL (3.5-5.0); ALKALINE PHOSPHATASE 82 U/L (38-126); ANION GAP 13 (5-19); ASPARTATE AMINO TRANSFERASE 20 U/L (17-59); BILIRUBIN,DIRECT 0.2 mg/dL (0.0-0.4); BILIRUBIN,TOTAL 0.4 mg/dL (0.2-1.3); BLOOD UREA NITROGEN 8 mg/dL (7-20); CALCIUM 9.8 mg/dL (8.4-10.2); CARBON DIOXIDE 29 mmol/L (22-30); CHLORIDE 102 mmol/L (98-107); CREATININE RESULT 0.91 mg/dL (0.52-1.25); GLUCOSE 115 mg/dL (75-110); POTASSIUM 3.8 mmol/L (3.6-5.0); SODIUM 143.7 mmol/L (137-145); TOTAL PROTEIN 7.6 g/dL (6.3-8.2)
[2017-10-20 16:18] VITALS: BP 169/109
== END 2017-10-20 18:05 | disposition home or self-care (01) ==
LOC: ER 14:58
DX: B34.9 Viral infection, unspecified (principal); K08.89 Other specified disorders of teeth and supporting structures; M79.1 Myalgia; H92.01 Otalgia, right ear; F17.200 Nicotine dependence, unspecified, uncomplicated
CPT/HCPCS: 99283; 36415; 85025; 80053; 87804; S0119

== ENCOUNTER 2017-12-05 19:19 | Emergency (ER) | payer OTHER ==
[2017-12-05] MEDS ORDERED: ACETAMINOPHEN 325 MG TABLET PO ONE (20:11)
[2017-12-05] MEDS ORDERED: PENICILLIN V POTASSIUM 500 MG TABLET PO ONE (20:11)
[2017-12-05] MEDS ORDERED: LIDOCAINE 2% VISCOUS SOLN 20 ML UDCUP PO ONE (20:11)
--- NOTE | 2017-12-05 20:19 | ER Document Report ---
ED Oral Problem - General Chief Complaint: Toothache Stated Complaint: MOUTH SWELLING Time Seen by Provider: 12/05/17 19:51 Mode of Arrival: Ambulatory Information source: Patient Notes: 32-year-old male presents to ED for complaint of left upper jaw pain around tooth #12. The tooth is broken off at the gum lines. He was seen in November for the same tooth and has not been to the dentist since then. TRAVEL OUTSIDE OF THE [place] IN LAST 30 DAYS: No - HPI Patient complains to provider of: Toothache Onset: Other - Last month Onset: Gradual Quality of pain: Sharp, Throbbing Severity: Moderate Pain Level: 3 Associated symptoms: Toothache Worsened by: Cold Relieved by: Nothing Similar symptoms previously: Yes Recently seen / treated by doctor/dentist: Yes - Related Data Allergies/Adverse Reactions: No Known Allergies Allergy (Verified 12/05/17 19:23) Past Medical History - General Information source: Patient - Social History Smoking Status: Current Some Day Smoker Cigarette use (# per day): Yes - Some day smoker Chew tobacco use (# tins/day): No Smoking Education Provided: Yes - 4 minutes Frequency of alcohol use: Occasional Drug Abuse: None Occupation: [employer] Lives with: Friend Family History: None Patient has suicidal ideation: No Patient has homicidal ideation: No - Past Medical History Cardiac Medical History: Reports: Hx Hypertension Pulmonary Medical History: Reports: None EENT Medical History: Reports: None Neurological Medical History: Reports: None Endocrine Medical History: Reports: None Renal/ Medical History: Reports: None Malignancy Medical History: Reports None GI Medical History: Reports: None Musculoskeltal Medical History: Reports None Skin Medical History: Reports None Psychiatric Medical History: Reports: None Traumatic Medical History: Reports: None Infectious Medical History: Reports: None Surgical Hx: Negative Past Surgical History: Reports: None - Immunizations Immunizations up to date: Yes Hx Diphtheria, Pertussis, Tetanus Vaccination: Yes Review of Systems - Review of Systems Constitutional: No symptoms reported EENT: Dental problem Cardiovascular: No symptoms reported Respiratory: No symptoms reported Gastrointestinal: No symptoms reported Genitourinary: No symptoms reported Male Genitourinary: No symptoms reported Musculoskeletal: No symptoms reported Skin: No symptoms reported Hematologic/Lymphatic: No symptoms reported Neurological/Psychological: No symptoms reported -: Yes All other systems reviewed and negative Physical Exam - Vital signs Vitals: Temp Pulse Resp BP Pulse Ox 98.3 F 74 16 164/110 H 100 12/05/17 19:28 12/05/17 19:28 12/05/17 19:28 12/05/17 19:28 12/05/17 19:28 Interpretation: Normal - General General appearance: Appears well, Alert - HEENT Head: Normocephalic, Atraumatic Eyes: Normal Pupils: PERRL Ears: Normal External canal: Normal Tympanic membrane: Normal Sinus: Normal Nasal: Normal Mouth/Lips: Caries Mucous membranes: Normal Teeth diagram: 1 - Teeth broken off with redness around the tooth. Patient states it broke off before he was seen in October but the pain is gotten worse and he has not followed up with a dentist Pharynx: Normal Neck: Normal - Respiratory Respiratory status: No respiratory distress Chest status: Nontender Breath sounds: Normal Chest palpation: Normal - Cardiovascular Rhythm: Regular Heart sounds: Normal auscultation Murmur: No - Abdominal Inspection: Normal Distension: No distension Bowel sounds: Normal Tenderness: Nontender Organomegaly: No organomegaly - Back Back: Normal, Nontender - Extremities General upper extremity: Normal inspection, Nontender, Normal color, Normal ROM , Normal temperature General lower extremity: Normal inspection, Nontender, Normal color, Normal ROM , Normal temperature, Normal weight bearing. No: Ash's sign - Neurological Neuro grossly intact: Yes Cognition: Normal Orientation: AAOx4 Leo Coma Scale Eye Opening: Spontaneous Leo Coma Scale Verbal: Oriented Leo Coma Scale Motor: Obeys Commands [place] Coma Scale Total: 15 Speech: Normal Motor strength normal: LUE, RUE, LLE, RLE Sensory: Normal - Psychological Associated symptoms: Normal affect, Normal mood - Skin Skin Temperature: Warm Skin Moisture: Dry Skin Color: Normal Course - Re-evaluation Re-evalutation: 12/05/17 20:26 Patient will be treated with penicillin VK lidocaine and discharged home with prescription for Penicillin VK. Patient to follow-up with the dentist as this tooth needs to be treated - Vital Signs Vital signs: Temp Pulse Resp BP Pulse Ox 97.8 F 70 18 158/99 H 100 12/05/17 20:46 12/05/17 20:46 12/05/17 20:46 12/05/17 20:46 12/05/17 20:46 Discharge - Discharge Clinical Impression: Pain due to dental caries Condition: Stable Disposition: HOME, SELF-CARE Additional Instructions: TOOTHACHE: Your pain is due to dental decay. The tooth must be repaired in order for you to feel better. You will, therefore, be referred to a dentist. We do not have dentists on the staff at [facility]. Severe swelling or drainage around a tooth usually means a dental abscess. This also requires evaluation and treatment by the dentist, but antibiotics may be prescribed while awaiting dental treatment. You should be rechecked immediately if you develop major swelling of the face, increasing pain, a lump in the jaw or gums, headache, difficulty swallowing, or fever. PENICILLIN V K: You have been given a prescription for Penicillin VK. Your physician has determined that this is the best antibiotic for your condition. Pen VK can be taken with meals, however more of the antibiotic gets into the bloodstream if it's taken on an empty stomach. Penicillin usually has no side effects. However, allergy to penicillins is common. If you have had an allergic reaction to any drug of the penicillin family, you should never take any other penicillin. Notify your doctor at once if you develop hives, itching, swelling, faintness, or shortness of breath. Acetaminophen Acetaminophen may be taken for pain relief or fever control. It's much safer than aspirin, offering a wider range of "safe" dosages. It is safe during . Some brand names are Tylenol, Panadol, Datril, Anacin 3, Tempra, and Liquiprin. Acetaminophen can be repeated every four hours. The following are maximum recommended dosages: WEIGHT Dose Drops Elixir Chewable( 80mg) (LBS.) drprs=droppers tsp=teaspoon 6 40 mg .4 ml (1/2) 6-11 80 mg .8 ml (full) 1/2 tsp 1 tab 12-16 120 mg 1 1/2 drprs 3/4 tsp 1 1/2 tabs 17-23 160 mg 2 drprs 1 tsp 2 tabs 24-30 240 mg 3 drprs 1 1/2 tsp 3 tabs 30-35 320 mg 2 tsp 4 tabs 36-41 360 mg 2 1/4 tsp 4 1 /2 tabs 42-47 400 mg 2 1/2 tsp 5 tabs 48-53 480 mg 3 tsp 6 tabs 54-59 520 mg 3 1/4 tsp 6 1 /2 tabs 60-64 560 mg 3 1/2 tsp 7 tabs 65-70 600 mg 3 3/4 tsp 7 1 /2 tabs 71-76 640 mg 4 tsp 8 tabs 77-82 720 mg 4 1/2 tsp 9 tabs 83-88 800 mg 5 tsp 10 tabs >89 pounds or adults 650 mg to 900 mg Acetaminophen can be repeated every four hours. Maximum daily dose not to exceed 4000 mg. These maximum recommended dosages are slightly higher than the dosages written on the product container, but these dosages are very safe and well below the toxic dosage for acetaminophen. You were you need to follow-up with your given a syringe of lidocaine jelly. You can put a small amount of lidocaine on your finger and apply it to the area of the sore tooth. Please be sure to follow-up with the dentist as soon as possible. Primary doctor as soon as possible to reassess your blood pressure your blood pressure is very high today. Please follow-up as soon as possible FOLLOW-UP CARE: You have been referred for follow-up care to the dentists listed below. Call the dentists office for an appointment as you were instructed or within the next two days. If you experience worsening or a significant change in your symptoms, notify the physician immediately or return to the Emergency Department at any time for re-evaluation. [facility] [address] [place], [place] [facility] [address] [place] [address] [facility] [address] [facility] [address] [facility] [address] [facility]. [email or web address] [address] [place] [address] Saturday- 8:00am to 5:00 pm Will see patients from other [facility]. Charges based on income and family size and accepts Medicare, Medicaid, and Insurances Will pull molars [facility] [place]. [id number] Hours of Operation 8:00 am - 4:30 pm weekdays The following dental offices accept Medicaid: [facility] Dr. Pena Dr. Hendricks Dr. Garcia Dr. Brown Ruben Dubon, [place], and Melisa oral surgery Dr. Lopes ([place]) Dr. Miner ([place]) [facility] Drs. Galindo ([place]) Dr. Muniz ([place]) [facility] Dr. Young ([place]) Drs. Galeano and ([place]) Medicaid Care Line Prescriptions: Penicillin V Potassium [Penicillin Vk 500 mg Tablet] 500 mg PO BID #20 tablet Forms: Elevated Blood Pressure, Return to Work Referrals: [facility] [Provider Group] - Follow up as needed
[2017-12-05 20:49] VITALS: BP 158/99
== END 2017-12-05 20:46 | disposition home or self-care (01) ==
LOC: ER 19:19
DX: K02.9 Dental caries, unspecified (principal); F17.210 Nicotine dependence, cigarettes, uncomplicated; I10 Essential (primary) hypertension
CPT/HCPCS: 99406; 99282; J3490

== ENCOUNTER 2018-01-23 17:37 | Emergency (ER) | payer OTHER ==
[2018-01-23 17:55] VITALS: BP 179/110
[2018-01-23] MEDS ORDERED: OXYCODONE-ACETAMINOPHEN 5-325 MG TABLET PO ONE (18:06)
--- NOTE | 2018-01-23 18:11 | ER Document Report ---
HPI - HPI Pain Level: 4 Notes: Patient is a 32-year-old male with a history of hypothyroidism who presents to the ED complaining of left lower jaw swelling and dental pain to #192 days. Patient states that the swelling primarily started this morning, however. Patient states that he is still able to eat and drink, but has not wanted to because of the pain. He is urinating normally and having normal bowel movements. He has not noticed any obvious abscess or purulent discharge. He denies any drug allergies or IV drug use. Patient states that he is calling Saturday to schedule an appointment with the dentist/caring community per their direction. Denies any headache, fever, head injury, neck pain, drooling, hoarseness, URI, sore throat, chest pain, palpitations, syncope, cough, shortness of breath, wheeze, dyspnea, abdominal pain, nausea/vomiting/diarrhea, urinary retention, dysuria, hematuria, or rash. - ROS Systems Reviewed and Negative: Yes All other systems reviewed and negative Past Medical History - Social History Smoking Status: Unknown if Ever Smoked Family History: None - Past Medical History Cardiac Medical History: Reports: Hx Hypertension Renal/ Medical History: Denies: Hx Peritoneal Dialysis - Immunizations Immunizations up to date: Yes Hx Diphtheria, Pertussis, Tetanus Vaccination: Yes Vertical Provider Document - CONSTITUTIONAL Agree With Documented VS: Yes Notes: PHYSICAL EXAMINATION: GENERAL: Well-appearing, well-nourished and in no acute distress. HEAD: Atraumatic, normocephalic. EYES: Pupils equal round and reactive to light, extraocular movements intact, sclera anicteric, conjunctiva are normal. ENT: EAC clear b/l. TM's intact b/l without erythema, fluid, or perforation. Nares patent and without discharge. oropharynx clear without exudates. No tonsilar hypertrophy or erythema. Moist mucous membranes. No sinus tenderness. Uvula midline. No palatine shift. No tongue protrusion. No airway compromise. Mouth: + mild gingivitis. No obvious abscess or discharge noted. + mild left lower jaw/facial swelling. + tenderness to tooth #19. NECK: Normal range of motion, supple without lymphadenopathy. No rigidity/ meningismus. LUNGS: Breath sounds clear to auscultation bilaterally and equal. No wheezes rales or rhonchi. HEART: Regular rate and rhythm without murmurs, rubs, gallops. NEUROLOGICAL: Cranial nerves grossly intact. Normal speech, normal gait. Normal sensory, motor exams PSYCH: Normal mood, normal affect. SKIN: Warm, Dry, normal turgor, no rashes or lesions noted. - INFECTION CONTROL TRAVEL OUTSIDE OF THE [place] IN LAST 30 DAYS: No Course - Re-evaluation Re-evalutation: 01/23/18 18:09 Patient is an afebrile, well-hydrated, 32-year-old male who presents to the ED with dental pain to #19, suspect infection. Vitals are acceptable. PE is otherwise unremarkable. No labs or imaging warranted at this time based on H& P. No incision and drainage is warranted at this time. I will be sending him home with a prescription for penicillin. Patient declined any lidocaine at this time. Low suspicion for any meningitis, sepsis, peritonsillar/pharyngeal abscess, respiratory compromise, Chaparro's, temporal arteritis, or other emergent systemic condition at this time. Patient is aware this condition can change from initial presentation and he needs to monitor symptoms closely. Conservative measures otherwise for symptoms. Call to schedule an appointment with a dentist for further evaluation and management. Recheck with your PCM this week as well. Return to the ED with any worsening/concerning symptoms otherwise as reviewed in discharge. Patient is in agreement. - Vital Signs Vital signs: Temp Pulse Resp BP Pulse Ox 99.2 F 89 16 179/110 H 97 01/23/18 17:54 01/23/18 17:54 01/23/18 17:54 01/23/18 17:54 01/23/18 17:54 Discharge - Discharge Clinical Impression: Toothache Condition: Stable Disposition: HOME, SELF-CARE Instructions: Penicillin V K (OM), Toothache (OM) Additional Instructions: [place] and floss twice daily Maintain fluid intake Take antibiotics as directed Mouthwash, salt water gargles, peroxide rinse as needed Tylenol/ibuprofen as needed Recheck with PCM this week Call today/tomorrow and schedule an appointment with your dentist for further evaluation Return to the ED with any worsening symptoms and/or development of fever, headache, facial swelling, swelling of lips/tongue/throat, trouble swallowing, drooling, hoarseness, neck pain/stiffness, chest pain, palpitations, syncope, shortness of breath, trouble breathing, abdominal pain, n/v/d, numbness/tingling , or other worsening symptoms that are concerning to you. Prescriptions: Penicillin V Potassium [Penicillin Vk 250 mg Tablet] 500 mg PO BID #40 tablet Forms: Elevated Blood Pressure Referrals: [facility] [Provider Group] - Follow up as needed
== END 2018-01-23 18:22 | disposition home or self-care (01) ==
LOC: ER 17:37
DX: K08.9 Disorder of teeth and supporting structures, unspecified (principal); E03.9 Hypothyroidism, unspecified; I10 Essential (primary) hypertension
CPT/HCPCS: 99282

== ENCOUNTER 2019-11-17 14:24 | Emergency (ER) | payer SELFPAY ==
[2019-11-17] MEDS ORDERED: ONDANSETRON HCL INJ/PF 4 MG/2 ML SDV IV ONE (14:43)
[2019-11-17] MEDS ORDERED: NORMAL SALINE 1000 ML 1,000 ML IV ONE (14:43)
[2019-11-17] MEDS ORDERED: FAMOTIDINE INJ/PF 20 MG/2 ML SDV IV ONE (14:47)
--- NOTE | 2019-11-17 14:47 | ER Document Report ---
ED Medical Screen (RME) - General Chief Complaint: Nausea/Vomiting/Diarrhea Stated Complaint: VOMITING/DIARRHEA Time Seen by Provider: 11/17/19 14:37 Mode of Arrival: Wheelchair Information source: Patient Notes: 34-year-old male patient presents emergency department with 36-hour history of nausea, vomiting, diarrhea and abdominal pain. Patient reports generalized body aches as well. Patient denies any fevers. Epigastric tenderness with palpation. I have greeted and performed a rapid initial assessment of this patient. A comprehensive ED assessment and evaluation of the patient, analysis of test results and completion of the medical decision making process will be conducted by additional ED providers. I have specifically instructed the patient or family members with the patient to immediately return to any nursing staff should anything change in the patient's condition or with their chief complaint. TRAVEL OUTSIDE OF THE [place] IN LAST 30 DAYS: No - Related Data Allergies/Adverse Reactions: No Known Allergies Allergy (Verified 11/17/19 14:30) Past Medical History - Social History Family history: Reviewed & Not Pertinent - Past Medical History Cardiac Medical History: Reports: Hx Hypertension Renal/ Medical History: Denies: Hx Peritoneal Dialysis - Immunizations Immunizations up to date: Yes Hx Diphtheria, Pertussis, Tetanus Vaccination: Yes Physical Exam - Vital signs Vitals: Temp Pulse Resp BP Pulse Ox 98.3 F 84 20 159/106 H 100 11/17/19 14:29 11/17/19 14:29 11/17/19 14:29 11/17/19 14:29 11/17/19 14:29 Course - Vital Signs Vital signs: Temp Pulse Resp BP Pulse Ox 98.3 F 84 20 159/106 H 100 11/17/19 14:29 11/17/19 14:29 11/17/19 14:29 11/17/19 14:29 11/17/19 14:29
[2019-11-17] MEDS ORDERED: ONDANSETRON 4 MG TAB.RAPDIS PO ONE (14:51)
[2019-11-17 15:30] LABS: ABSOLUTE BASOPHILS # (AUTO) 0.1 10^3/uL (0.0-0.2); ABSOLUTE LYMPHOCYTES (AUTO) 0.6 10^3/uL (0.5-4.7); ABSOLUTE MONOCYTES (AUTO) 0.5 10^3/uL (0.1-1.4); ABSOLUTE NEUT (AUTO) 6.9 10^3/uL (1.7-8.2); BASOPHILS % (AUTO) 0.7 % (0-2); EOSINOPHILS % (AUTO) 0.3 % (0-6); HEMATOCRIT 49.3 % (37.9-51.0); HEMOGLOBIN 16.4 g/dL (13.5-17.0); LYMPHOCYTES % (AUTO) 7.6 % (13-45); MEAN CORPUSCULAR HEMOGLOBIN 30.3 pg (27.0-33.4); MEAN CORPUSCULAR HGB CONC 33.3 g/dL (32.0-36.0); MEAN CORPUSCULAR VOLUME 91 fl (80-97); MONOCYTES % (AUTO) 6.4 % (3-13); PLATELET COUNT 194 10^3/uL (150-450); RED BLOOD COUNT 5.43 10^6/uL (4.35-5.55); RED CELL DISTRIBUTION WIDTH 13.5 % (11.5-14.0); TOTAL CELLS COUNTED % (AUTO) 100 %; WHITE BLOOD COUNT 8.1 10^3/uL (4.0-10.5)
[2019-11-17 15:54] LABS: ALBUMIN 4.9 g/dL (3.5-5.0); ALKALINE PHOSPHATASE 94 U/L (38-126); ANION GAP 16 (5-19); ASPARTATE AMINO TRANSFERASE 34 U/L (17-59); BILIRUBIN,DIRECT 0.2 mg/dL (0.0-0.4); BILIRUBIN,TOTAL 0.5 mg/dL (0.2-1.3); BLOOD UREA NITROGEN 7 mg/dL (7-20); CALCIUM 10.1 mg/dL (8.4-10.2); CARBON DIOXIDE 22 mmol/L (22-30); CHLORIDE 100 mmol/L (98-107); GLUCOSE 115 mg/dL (75-110); POTASSIUM 3.8 mmol/L (3.6-5.0); TOTAL PROTEIN 8.4 g/dL (6.3-8.2)
[2019-11-17 16:12] LABS: A TYPE INFLUENZA AG NEGATIVE (NEGATIVE); B INFLUENZA AG NEGATIVE (NEGATIVE)
[2019-11-17] MEDS ORDERED: PROMETHAZINE HCL INJ 25 MG/1 ML VIAL IV ONE (16:59)
--- NOTE | 2019-11-17 17:00 | ER Document Report ---
ED GI/ - General Chief Complaint: Nausea/Vomiting/Diarrhea Stated Complaint: VOMITING/DIARRHEA Time Seen by Provider: 11/17/19 14:37 Mode of Arrival: Wheelchair Notes: CHIEF COMPLAINT: Nausea vomiting and diarrhea HPI: 34-year-old male presenting to the emergency department complaining of nausea vomiting and diarrhea that began yesterday. No fever. Patient states that he began to feel not well yesterday, a family member has upper respiratory symptoms that are likely viral in nature. Patient began having nausea and had 6 episodes of nonbilious vomiting. Had an equal number of non-bloody diarrheal stools between yesterday and today. Reports mild epigastric cramping no lower abdominal pain. States he has had difficulty keeping fluids down today. ROS: See HPI - all other systems were reviewed and are otherwise negative Constitutional: no fever Eyes: no drainage, no blurred vision ENT: no runny nose, no sore throat Cardiovascular: no chest pain Resp: no SOB, no cough GI: + vomiting, + diarrhea, + epigastric abdominal pain : no dysuria Integumentary: no rash Allergy: no hives Musculoskeletal: no extremity pain or swelling Neurological: no numbness/tingling, no weakness MEDICATIONS: I agree with the patient medications as charted by the RN. ALLERGIES: I agree with the allergies as charted by the RN. PAST MEDICAL HISTORY/PAST SURGICAL HISTORY: Reviewed and agree as charted by RN. SOCIAL HISTORY: Reviewed and agree as charted by RN. FAMILY HISTORY: No significant familial comorbid conditions directly related to patient complaint EXAM: Reviewed vital signs as charted by RN. CONSTITUTIONAL: Alert and oriented and responds appropriately to questions. Well-appearing; well-nourished, mild distress secondary to nausea HEAD: Normocephalic; atraumatic EYES: PERRL; Conjunctivae clear, sclerae non-icteric ENT: normal nose; no rhinorrhea; moist mucous membranes; pharynx without lesions noted, no uvula edema or deviation, no tonsillar hypertrophy, phonation normal NECK: Supple without meningismus; non-tender; no cervical lymphadenopathy, no masses CARD: RRR; no murmurs, no clicks, no rubs, no gallops; symmetric distal pulses RESP: Normal chest excursion without splinting or tachypnea; breath sounds clear and equal bilaterally; no wheezes, no rhonchi, no rales, pulse oximetry 3 6% on room air not hypoxic ABD/GI: Obese, normal bowel sounds; non-distended; soft, no right upper quadrant tenderness on palpation. No right lower quadrant tenderness on palpation. Minimal epigastric tenderness on palpation, no rebound, no guarding; no palpable organomegaly or masses. BACK: The back appears normal and is non-tender to palpation, there is no CVA tenderness EXT: Normal ROM in all joints; non-tender to palpation; no cyanosis, no effusions, no edema SKIN: Normal color for age and race; warm; dry; good turgor; no acute lesions noted NEURO: Moves all extremities equally; Motor and sensory function intact PSYCH: The patient's mood and manner are appropriate. Grooming and personal hygiene are appropriate. MDM: 34-year-old male presenting essentially for nausea vomiting and diarrhea. Patient still complaining of nausea despite receiving Zofran. He is still receiving IV fluids currently. We will give a dose of Phenergan. Patient's lab work does not show a significant leukocytosis. Chemistry does not show significant abnormalities. Do not yet have a urinalysis but patient denies dysuria. He recently had an ill contact to likely had a viral etiology. Will reassess patient after Phenergan TRAVEL OUTSIDE OF THE [place] IN LAST 30 DAYS: No - Related Data Allergies/Adverse Reactions: No Known Allergies Allergy (Verified 11/17/19 14:30) Past Medical History - General Information source: Patient - Social History Smoking Status: Current Every Day Smoker Family History: None Patient has suicidal ideation: No Patient has homicidal ideation: No - Past Medical History Cardiac Medical History: Reports: Hx Hypertension Renal/ Medical History: Denies: Hx Peritoneal Dialysis - Immunizations Immunizations up to date: Yes Hx Diphtheria, Pertussis, Tetanus Vaccination: Yes Physical Exam - Vital signs Vitals: Temp Pulse Resp BP Pulse Ox 98.3 F 84 20 159/106 H 100 11/17/19 14:29 11/17/19 14:29 11/17/19 14:29 11/17/19 14:29 11/17/19 14:29 Course - Re-evaluation Re-evalutation: 11/17/19 19:07 Patient nausea is much improved. Has no abdominal pain on repeat exam at this time. He is tolerating oral fluids. Discussed evaluation and results at length with the patient and his mother. Patient to return for recurrent or worsening abdominal pain, focal abdominal pain in the right lower quadrant, intractable vomiting, fever greater than [address]. [address] patient on Phenergan at this time, hydration, rest, PCP follow-up. He has no right lower quadrant pain on exam at this time - Vital Signs Vital signs: Temp Pulse Resp BP Pulse Ox 98.3 F 84 20 159/106 H 100 11/17/19 14:29 11/17/19 14:29 11/17/19 14:29 11/17/19 14:29 11/17/19 14:29 - Laboratory Result Diagrams: 11/17/19 15:00 11/17/19 15:00 Laboratory results interpreted by me: 11/17/19 11/17/19 11/17/19 15:00 15:00 18:00 Lymph % (Auto) 7.6 L Seg Neutrophils % 85.0 H Glucose 115 H Total Protein 8.4 H Urine Ketones 20 H Discharge - Discharge Clinical Impression: Nausea vomiting and diarrhea, Abdominal pain, epigastric Condition: Stable Disposition: HOME, SELF-CARE Instructions: Diarrhea, Nonspecific ([facility]), Vomiting ([facility]), Abdominal Pain ([facility]) Additional Instructions: Take the Phenergan for any recurrent nausea or vomiting. Do not drive if taking this medication as it can make you sleepy. Follow-up closely with primary care provider for reevaluation of symptoms. If you develop right lower quadrant pain, intractable vomiting, fever greater than 101 return to the emergency department as discussed Prescriptions: Promethazine HCl [Phenergan 25 mg Tablet] 1 tab PO Q6H PRN #15 tablet PRN Reason: Referrals: HERIBERTO LUEVANO MD [ACTIVE STAFF] - Follow up as needed
[2019-11-17 18:19] LABS: APPEARANCE,URINE CLEAR; BILIRUBIN,URINE NEGATIVE (NEGATIVE); COLOR,URINE YELLOW; GLUCOSE, URINE NEGATIVE (NEGATIVE); KETONES,URINE 20 mg/dL (NEGATIVE); LEUKOCYTE ESTERASE,URINE NEGATIVE (NEGATIVE); NITRITE,URINE NEGATIVE (NEGATIVE); PROTEIN,URINE NEGATIVE (NEGATIVE); URINE SPECIFIC GRAVITY 1.009; UROBILINOGEN,URINE NEGATIVE mg/dL (<2.0)
[2019-11-17] MEDS ORDERED: ACETAMINOPHEN 325 MG TABLET PO ONE (19:54)
[2019-11-17 20:13] VITALS: BP 162/101
== END 2019-11-17 20:11 | disposition home or self-care (01) ==
LOC: ER 14:24
DX: R11.2 Nausea with vomiting, unspecified (principal); R19.7 Diarrhea, unspecified; R10.13 Epigastric pain; R10.816 Epigastric abdominal tenderness; I10 Essential (primary) hypertension; F17.200 Nicotine dependence, unspecified, uncomplicated
CPT/HCPCS: 99284; 96361; 96374; 96375; 36415; 83690; 85025; 80053; 81001; 87804; S0119; J2550; J7030; S0028

== ENCOUNTER 2020-06-21 14:46 | Emergency (ER) | payer SELFPAY ==
[2020-06-21 15:05] VITALS: BP 165/103
[2020-06-21] MEDS ORDERED: KETOROLAC TROMETHAMINE 60 MG/2 ML SDV IM ONE (15:21)
--- NOTE | 2020-06-21 15:27 | ER Document Report ---
HPI - HPI Time Seen by Provider: 06/21/20 15:21 Notes: 35-year-old male presents emergency room for a cracked right lower tooth 4 days ago, states he has been taking Advil for his pain, without for relief. Try to call Dr. William, dentist, states he is still waiting to make an appointment. L ast time he took anything for pain was at 4 AM this morning and it was Advil. Patient reports he has 2 cracked teeth to his right lower jaw. Denies any other area of injury. Patient states he is a smoker. Denies fevers, chills, chest pain,palpitations, shortness of breath, dyspnea, nausea, vomiting, diarrhea, abdominal pain, hematuria,blurred vision, double vision, loss of vision, speech changes, LH, dizziness, syncope, headaches, wheezing, ST, URI, neck pain, weakness, bowel or bladder dysfunction, saddle anesthesia, numbness or tingling in bilateral upper or lower extremities equally, muscle paralysis, weakness in bilateral upper or lower extremities equally or rash. Denies IV drug use. MEDICATIONS: I agree with the patient medications as charted by the RN. ALLERGIES: I agree with the allergies as charted by the RN. PAST MEDICAL HISTORY/PAST SURGICAL HISTORY: Reviewed and agree as charted by RN. SOCIAL HISTORY: Reviewed and agree as charted by RN. FAMILY HISTORY: No significant familial comorbid conditions directly related to patient complaint EXAM: Reviewed vital signs as charted by RN. REVIEW OF SYSTEMS:reviewed vital signs by RN CONSTITUTIONAL : Denies fever, chills, or sweats. Denies recent illness. EENT: Reports dental pain. denies eye, ear, throat, or mouth pain or symptoms. Denies nasal or sinus congestion or discharge. Denies throat, tongue, or mouth swelling or difficulty swallowing. CARDIOVASCULAR: Denies chest pain. Denies palpitations or racing or irregular heart beat. Denies ankle edema. RESPIRATORY: Denies cough, cold, or chest congestion. Denies shortness of breath, difficulty breathing, or wheezing. GASTROINTESTINAL: Denies abdominal pain or distention. Denies nausea, vomiting, or diarrhea. Denies blood in vomitus, stools, or per rectum. Denies black, tarry stools. Denies constipation. GENITOURINARY: Denies difficulty urinating, painful urination, burning, frequency, blood in urine, or discharge. MUSCULOSKELETAL: Denies back or neck pain or stiffness. Denies joint pain or swelling. SKIN: Denies rash, lesions or sores. HEMATOLOGIC : Denies easy bruising or bleeding. LYMPHATIC: Denies swollen, enlarged glands. NEUROLOGICAL: Denies confusion or altered mental status. Denies passing out or loss of consciousness. Denies dizziness or lightheadedness. Denies headache. Denies weakness or paralysis or loss of use of either side. Denies problems with gait or speech. Denies sensory loss, numbness, or tingling. Denies seizures. PSYCHIATRIC: Denies anxiety or stress. Denies depression, suicidal ideation, or homicidal ideation. ALL OTHER SYSTEMS REVIEWED AND NEGATIVE. Dictation was performed using [employer] voice recognition software PHYSICAL EXAMINATION: GENERAL: Well-appearing, well-nourished and in no acute distress. HEAD: Atraumatic, normocephalic. EYES: Pupils equal round and reactive to light, extraocular movements intact, sclera anicteric, conjunctiva are normal. ENT: Nares patent, oropharynx clear without exudates. Moist mucous membranes. TM with effusion bilaterally, no erythema. TMs intact. #27,28 gingiva with swelling, erythema and induration with 2 fractured teeth. No drainage or open wounds. No fluctuance. No facial swelling. Poor oral dentition, right lower jaw with mild dental caries, no definite swelling or effusion. no trismus noted. Uvula is midline NECK: Normal range of motion, supple without lymphadenopathy LUNGS: Breath sounds clear to auscultation bilaterally and equal. No wheezes rales or rhonchi. HEART: Regular rate and rhythm without murmurs ABDOMEN: Soft, nontender, nondistended abdomen. No guarding, no rebound. No masses appreciated. Musculoskeletal: Normal range of motion, no pitting or edema. No cyanosis. NEUROLOGICAL: Cranial nerves grossly intact. Normal speech, normal gait. Normal sensory, motor exams PSYCH: Normal mood, normal affect. SKIN: Warm, Dry, normal turgor, no rashes or lesions noted. Past Medical History - General Information source: Patient - Social History Smoking Status: Current Every Day Smoker Family History: None - Past Medical History Cardiac Medical History: Reports: Hx Hypertension Renal/ Medical History: Denies: Hx Peritoneal Dialysis - Immunizations Immunizations up to date: Yes Hx Diphtheria, Pertussis, Tetanus Vaccination: Yes Vertical Provider Document - CONSTITUTIONAL Agree With Documented VS: Yes Exam Limitations: No Limitations - INFECTION CONTROL TRAVEL OUTSIDE OF THE [place] IN LAST 30 DAYS: No Course - Re-evaluation Re-evalutation: 06/21/20 15:29 Afebrile vital stable no distress. Nurses notes reviewed. Patient is 60 mg of Toradol IM. Will start on oral clindamycin, advised to follow a bland diet soft diet. List of dentists given to patient for him to follow-up with. Advised to quit smoking. Alternate between Tylenol and ibuprofen for pain control. Hot compress to site 20 minutes on 20 minutes off several times a day. after performing a Medical Screening Examination, I estimate there is LOW risk for a DEEP SPACE INFECTION (e.g., JHONNY'S ANGINA OR RETROPHARYNGEAL ABSCESS), MENINGITIS, INTRACRANIAL HEMORRHAGE, or AIRWAY COMPROMISE, thus I consider the discharge disposition reasonable. Also, there is no evidence or peritonitis, sepsis, or toxicity. I have reevaluated this patient multiple times and no significant life threatening changes are noted. The patient and I have discussed the diagnosis and risks, and we agree with discharging home with close follow-up with the understanding that symptoms and presentations can change. We also discussed returning to the Emergency Department immediately if new or worsening symptoms occur. We have discussed the symptoms which are most concerning (e.g., changing or worsening pain, trouble swallowing or breathing, neck stiffness or fever) that necessitate immediate return. - Vital Signs Vital signs: Temp Pulse Resp BP Pulse Ox 98.3 F 71 20 165/103 H 99 06/21/20 15:03 06/21/20 15:03 06/21/20 15:03 06/21/20 15:03 06/21/20 15:03 Discharge - Discharge Clinical Impression: Toothache, Hypertension Condition: Stable Disposition: HOME, SELF-CARE Instructions: Clindamycin ([facility]), [facility], Toothache ([facility]), Dentist, Dental Infection or Abscess ([facility]) Additional Instructions: You are given 60 mg of Toradol IM today. Will be starting you on oral clindamycin, please take every 6 hours and make sure you eat food prior to taking antibiotic. Please follow a soft diet. Alternate between Tylenol and ibuprofen for pain control. Please call 1 of the dentist and this discharge information list to set up an appointment for your dental issues Return immediately for any new or worsening symptoms. Follow up with primary care provider, call tomorrow to make followup appointment. Prescriptions: Clindamycin HCl 300 mg PO Q6H #28 capsule Referrals: ANTONIO DAVID MD [ACTIVE STAFF] - Follow up as needed
== END 2020-06-21 15:44 | disposition home or self-care (01) ==
LOC: ER 14:46
DX: K03.81 Cracked tooth (principal); K08.89 Other specified disorders of teeth and supporting structures; I10 Essential (primary) hypertension
CPT/HCPCS: 99282

== ENCOUNTER 2020-08-06 17:05 | Emergency (ER) | payer SELFPAY ==
[2020-08-06 17:16] VITALS: BP 193/108
[2020-08-06] MEDS ORDERED: ACETAMINOPHEN 325 MG TABLET PO ONE (17:58)
--- NOTE | 2020-08-06 18:02 | ER Document Report ---
HPI - HPI Patient complains to provider of: dental pain Time Seen by Provider: 08/06/20 17:52 Context: 35-year-old male past medical history significant for hypertension and hypothyroidism presents to the emergency room complaining of left upper dental pain that started last night around 1:15 AM. States he took Aleve around noon and then 800 mg of ibuprofen 4 hours later without relief. He denies any acute trauma or injury. States he has appointment next week with a dentist. Eating and drinking normally but states it is painful to chew. Associated Symptoms: None Exacerbated by: Other - Chewing Relieved by: Denies Similar symptoms previously: No Recently seen / treated by doctor: No - ROS Systems Reviewed and Negative: Yes All other systems reviewed and negative - CONSTITUTIONAL Constitutional: DENIES: Fever - EENT Notes: Dental pain - NEURO Neurology: DENIES: Headache - RESPIRATORY Respiratory: DENIES: Trouble Breathing - DERM Skin Color: Normal Skin Problems: None Past Medical History - General Information source: Patient - Social History Smoking Status: Current Every Day Smoker Frequency of alcohol use: None Drug Abuse: None Family History: None - Past Medical History Cardiac Medical History: Reports: Hx Hypertension Renal/ Medical History: Denies: Hx Peritoneal Dialysis - Immunizations Immunizations up to date: Yes Hx Diphtheria, Pertussis, Tetanus Vaccination: Yes Vertical Provider Document - CONSTITUTIONAL Agree With Documented VS: Yes Exam Limitations: No Limitations General Appearance: Mild Distress - INFECTION CONTROL TRAVEL OUTSIDE OF THE [place] IN LAST 30 DAYS: No - HEENT HEENT: Atraumatic, Normocephalic. negative: Pharyngeal Exudate, Pharyngeal Tenderness, Pharyngeal Erythema, Tympanic Membrane Red, Tympanic Membrane Bulging Mouth Diagram: 1 - Nonfluctuant abscess noted to the tooth #13. Patient has widespread dental decay with multiple missing teeth. Notes: Multiple widespread dental caries and missing teeth. - NECK Neck: Normal Inspection, Supple. negative: Lymphadenopathy-Left, Lymphadenopathy-Right - RESPIRATORY Respiratory: Breath Sounds Normal, No Respiratory Distress - CARDIOVASCULAR Cardiovascular: Regular Rate, Regular Rhythm, No Murmur - MUSCULOSKELETAL/EXTREMETIES Musculoskeletal/Extremeties: FROM, Non-Tender - NEURO Level of Consciousness: Awake, Alert, Appropriate Motor/Sensory: No Motor Deficit, No Sensory Deficit - DERM Integumentary: Warm, Dry, No Rash Course - Re-evaluation Re-evalutation: 08/06/20 17:59 Patient with known hypertension currently not taking his medications. States he ran out a week ago and has not called his primary care physician for refill. He was counseled on the importance of taking his blood pressure medication as prescribed. He is asymptomatic with his elevated blood pressure. No chest pain, no shortness of breath, no difficulty breathing. Was also counseled importance of following up with his dentist next week as scheduled. Antibiotics as prescribed. Tylenol and/or Motrin as discussed for pain. Patient was given strict return to the emergency room guidelines. Return for any new or worsening symptoms. All questions were answered. Patient verbalized understanding and agrees with plan of care. - Vital Signs Vital signs: Temp Pulse Resp BP Pulse Ox 98.7 F 65 18 193/108 H 98 08/06/20 17:14 08/06/20 17:14 08/06/20 17:14 08/06/20 17:14 08/06/20 17:14 Discharge - Discharge Clinical Impression: Pain, dental, Dental abscess Hypertension Qualifiers: Hypertension type: unspecified Qualified Code(s): I10 - Essential (primary) hypertension Condition: Stable Disposition: HOME, SELF-CARE Instructions: Dental Infection or Abscess ([facility]), High Blood Pressure, Requiring Treatment ([facility]), Penicillin V K ([facility]), Toothache ([facility]) Additional Instructions: Take Tylenol and or Motrin as needed for pain. Antibiotics as prescribed. Outpatient follow-up with a dentist as scheduled. Follow-up with your primary care physician as soon as possible for refill on your blood pressure medicat ions. Return to the emergency room for any new or worsening symptoms. Prescriptions: Penicillin V Potassium [Penicillin Vk 500 mg Tablet] 500 mg PO QID #40 tablet Forms: Elevated Blood Pressure, Return to Work Referrals: [facility] [Provider Group] - Follow up in 1 week (Call as soon as possible for an outpatient follow-up appointment for your elevated blood pressure.)
== END 2020-08-06 18:49 | disposition home or self-care (01) ==
LOC: ER 17:05
DX: K04.7 Periapical abscess without sinus (principal); K02.9 Dental caries, unspecified; K08.89 Other specified disorders of teeth and supporting structures; I10 Essential (primary) hypertension; F17.200 Nicotine dependence, unspecified, uncomplicated
CPT/HCPCS: 99283